=== PATIENT | female | born 1940 | race Two or more races ===

== ENCOUNTER 2021-10-08 16:33 | Emergency (ER) | payer OTHER ==
[~2021-10-08] VITALS: Ht 152.4 cm; Wt 85.3 kg
[2021-10-08] MEDS ORDERED: VAZALORE81 MG (18:54)
[2021-10-08] MEDS ORDERED: CRESTOR10 MG (18:54)
[2021-10-08] MEDS ORDERED: COZAAR100 MG (18:54)
== END 2021-10-08 22:32 | disposition home or self-care (01) ==
LOC: ER 16:33
DX: R42 Dizziness and giddiness (principal); Z88.2 Allergy status to sulfonamides; I10 Essential (primary) hypertension; E78.00 Pure hypercholesterolemia, unspecified